=== PATIENT | female | born 1985 | race Caucasian/White ===

== ENCOUNTER 2024-01-01 14:36 | Emergency (ER) | payer OTHER, SELFPAY ==
[2024-01-01 14:42] VITALS: BP 107/76
--- NOTE | 2024-01-01 16:36 | ED.GENMED ---
History of Present Illness
General
Chief Complaint: Abdominal Pain
Source: patient
Exam Limitations: none
Time Seen by Provider: 01/01/24 16:35
Nursing documentation reviewed up to this point in time: agreed with
History of Present Illness
History of Present Illness:
Patient is a 38-year-old female presenting to the emergency department for evaluation of pulsations in right lower abdomen. Patient states that about a week ago she noticed a 'pulsing 'in her right lower abdomen. She states that it has been
intermittent since occurring a few times a day, lasting about an hour each time. She states that she can both feel the sensation and see it visually. Patient denies any associated pain, nausea, vomiting. Patient denies any fever or chills.
Patient denies any urinary symptoms or changes in bowel habits. Patient states that she did contact her primary care provider who recommended that she come to the emergency department for further evaluation.
Patient has not been able to identify any triggers for the onset of pulsations. She does not notice it slowly with specific movements. When these 'pulsations 'occur they are not associated with any other symptoms.
Patients LMP was 12/22.
Past History
Past History
ED Past Medical History: None
Social History
Tobacco: Non-smoker
Review of Systems
Review of Systems
Allergies reviewed?: Yes
All Other Systems: ROS reviewed and negative except as documented in HPI and ROS
Phy Exam
Physical Exam
Physical Exam:
Vitals: Patient's vital signs are stable. Afebrile
General: Patient is very well appearing, no acute distress. Nontoxic appearing
Skin: Warm and dry, no rashes or lesions
Head: Normocephalic, atraumatic
Eyes: Sclera nonicteric. EOMs intact. No nystagmus.
Throat: Protecting airway
Neck: Normal ROM, no cervical spine tenderness, no meningismus
Cardiac: Regular rate and rhythm, no murmurs.
Pulm: Normal respiratory effort, no wheezes, rales, rhonchi heard on exam.
Abdomen: Abdomen soft. No abdominal tenderness. No pulsatile mass. No palpated masses.
Extremities: No evidence of cyanosis or edema. Great distal pulses
Neuro: AAOx3. CN II-XII intact. No focal neurologic deficits.
Psychiatric: Normal affect.
Course
Orders/Labs/Results
Orders:
Orders
01/01/24 17:28
Test Result ONCE
Pelvis (Non Obstetric) US [US Pelvis Only (non-obstetric)] Urgent
Comment:
Reason For Exam: pulsation right lower abdomen
01/01/24 18:24
Test Result ONCE
01/01/24 18:31
HCG, Serum Qualitative Screen Urgent
Vital Signs
Initial and Last Documented VS:
Initial Vital Signs
Temp Pulse Resp BP Pulse Ox
98.7 F 75 18 107/76 99
01/01/24 14:42 01/01/24 14:42 01/01/24 14:42 01/01/24 14:42 01/01/24 14:42
Last Documented Vital Signs
Temp Pulse Resp BP Pulse Ox
98.7 F 63 18 106/71 100
01/01/24 14:42 01/01/24 21:17 01/01/24 14:42 01/01/24 21:17 01/01/24 21:17
MDM/Problems Addressed
Differential Diagnosis Includes:
Not limited to: Muscular spasm/fasciculation, etc.
MDM/Problems Addressed:
Patient is a 38-year-old healthy female presenting with report of pulsation/twitching in right lower abdomen intermittently over the past week. No known triggers or inciting events. Patient has no fever, chills, abdominal pain, nausea or vomiting.
Patient has no loss of appetite. Patient otherwise has no complaints. Patient's vital signs are stable upon arrival. Physical exam as above. Patient is extremely well-appearing, in no apparent distress. Completely benign abdominal exam.
Abdomen is soft and nontender in all 4 quadrants. There is no pulsatile mass felt in the abdomen. There is no masses palpated throughout the abdomen. There is no tenderness to McBurney's point. Patient at this time is currently asymptomatic.
History most consistent with likely abdominal muscle spasm/fasciculation. Patient has been asymptomatic since arrival to emergency department and symptoms have not been witnessed. Will check and get pelvis ultrasound to rule out
alternative etiology. Given lack of pain, fever, GI symptoms�do not suspect appendicitis or acute intra-abdominal inflammatory process. Patient has no pulsatile mass in abdomen.
test negative. Pelvic ultrasound is without any acute findings. A 2 cm ovarian cyst noted which I do not suspect to be contributing to patient's symptoms. Patient remains asymptomatic while in the emergency department for many hours.
At this point she is stable for discharge. She will be instructed to monitor symptoms closely, follow-up with [facility] regarding cyst and for further evaluation/management. Patient comfortable with plan
Chronic conditions affecting care:
N/A
Acute Exacerbation and/or Progression of Chronic Illness:
N/A
*Radiology
Radiology exam reviewed: radiology read reviewed
*Pulse Oximetry
Patient hypoxic: no
*EKG
Interpreted by ED Provider?: NA
*Polisher Dial Interpretation
Rate: Polisher Dial- N/A
*Critical Care Note
Total Time (30-74mins, 75-104mins- exclusive of procedures): Not Applicable
ED Attending Note
-
Portions of this chart may have been created with voice recognition software.� Occasional wrong word or��sound alike� substitutions may have occurred due to the inherent limitations of voice recognition software.
Discharge Plan
Departure
Patient Disposition: Home (Routine Discharge)
Date of Disposition: 01/01/24
Time of Disposition: 21:07
Patient with high blood pressure during this ER visit?: No
Condition: Good
Covid-19: Not Applicable
Discharge Problem:
Spasm of abdominal muscles of right side
Instructions: Ovarian Cyst Removal (DC), Muscle Spasm ED
Prescriptions:
No Action
prenat.vits,katie,kgp-ormv-ftrpn [ Vitamin] 1 TAB tablet
1 tab PO DAILY
acetaminophen 325 MG tablet
650 mg PO Q4HPRN PRN (Reason: mild pain) 0RF
ibuprofen 600 MG tablet
600 mg PO Q4HPRN PRN (Reason: moderate pain/cramps) 0RF
ketorolac 10 MG tablet
10 mg PO Q6HPRN PRN (Reason: pain) Qty: 20 0RF
Referrals:
NONE,* [Family Provider] -
Lanette South MD [Active] - Call in 1-3 days for appt
Activity Restrictions/Additional Instructions:
Return to the emergency department with any fevers, chills, severe abdominal pain, intractable nausea/vomiting, worsening in any symptoms, or any other concerns
As discussed�is unclear the exact cause of your symptoms today. It may be caused to a muscular spasm in the abdomen. There was an incidental ovarian cyst found on your ultrasound today you should have this followed up by your [facility].
Is more to stay well-hydrated.
You should follow-up with your [facility]/family provider for further evaluation/management
Interventions
Interventions:
*Risk Screen - Suicide Last Done: 01/01/24 14:42
*General Assessment Last Done: 01/01/24 14:42
*Neglect/Abuse Screening Last Done: 01/01/24 14:42
*ED COVID-19 Vaccine History Last Done: 01/01/24 19:31
*Nursing Disposition Last Done: 01/01/24 21:22
BT-Ouixyp-Nujgpzrisf Assessment Last Done: 01/01/24 16:06
Discharge Date and Time
Discharge Date/Time: 01/01/24 21:23
Print Language: EGYPTIAN
[2024-01-01 18:52] LABS: HCG, Serum Qualitative Screen Negative
[2024-01-01 21:17] VITALS: BP 106/71
== END 2024-01-01 21:23 | disposition home or self-care (01) ==
LOC: EMR 14:36
PROVIDERS: Physician Assistant; EMERGENCY PHYSICIAN Emergency Medicine
DX: M62.838 Other muscle spasm (principal)
CPT/HCPCS: 99284; 76856; 84703